=== PATIENT | male | born 1950 | race Caucasian/White ===

== ENCOUNTER 2016-06-27 06:39 | Day surgery (SDC) | payer MEDICARE ==
[~2016-06-27] VITALS: Ht 188 cm; Wt 121.8 kg
[2016-06-27] MEDS ORDERED: SODIUM CHLOR 0.9% 1000 ML INJ 1,000 ML IV SCH (07:15)
[2016-06-27] MEDS ORDERED: SODIUM CHLORIDE 0.9% FLUSH 5 ML FLUSH IV FLUSH PRN (07:15)
[2016-06-27] MEDS ORDERED: LISI10TA3 PO (07:37)
[2016-06-27] MEDS ORDERED: METF500T PO (07:37)
[2016-06-27] MEDS ORDERED: ATOR10TA15 PO (07:37)
[2016-06-27 07:39] VITALS: BP 170/90; PULSE 54; RESP 18; TEMP 98.4; O2SAT 98
[2016-06-27] MEDS ORDERED: HEPARIN-NS/PF INJ 500 ML ONE (08:23)
[2016-06-27] MEDS ORDERED: HEPARIN SODIUM - IV 10,000 UNITS/10 ML VIAL ONE (08:24)
[2016-06-27] MEDS ORDERED: NITROGLYCERIN INJ 5 ML ONE (08:24)
[2016-06-27] MEDS ORDERED: MIDAZOLAM HCL 5 MG/5 ML VIAL ONE ×3 (08:24→09:29)
[2016-06-27] MEDS ORDERED: SODIUM CHLORIDE 0.9% FLUSH 5 ML FLUSH IV FLUSH SCH (09:00)
[2016-06-27] MEDS ORDERED: ADENOSINE IV SOLN 3 MG/ML 2 ML VIAL ONE (09:18)
[2016-06-27] MEDS ORDERED: CLOPIDOGREL 300 MG TAB ONE (09:55)
[2016-06-27] MEDS ORDERED: ASPI81TA11 PO (10:07)
[2016-06-27] MEDS ORDERED: PLAV75TA29 PO (10:07)
[2016-06-27] MEDS ORDERED: LORazepam 2 MG/ML VIAL IV PRN (10:15)
[2016-06-27] MEDS ORDERED: ATROPINE SULFATE 1 MG/ML VIAL IV PRN (10:15)
[2016-06-27] MEDS ORDERED: CLOPIDOGREL 300 MG TAB PO ONE (10:15)
[2016-06-27] MEDS ORDERED: oxyCODONE/ACETAMINOPHEN 5 MG/325 MG TAB PO PRN ×2 (10:15)
[2016-06-27] MEDS ORDERED: ENALAPRILAT 1.25 MG/ML VIAL IV PRN (10:15)
[2016-06-27] MEDS ORDERED: METOCLOPRAMIDE HCL 10 MG/2 ML VIAL IV PRN (10:15)
[2016-06-27] MEDS ORDERED: LABETALOL HCL 100 MG/20 ML VIAL IVP PRN (10:15)
[2016-06-27] MEDS ORDERED: cloNIDine HCL 0.1 MG TAB PO PRN (10:15)
[2016-06-27] MEDS ORDERED: NITROPRUSSIDE INJ 50 MG in DEXTROSE 5% IN WATER INJ 248 ML IV SCH ×2 (10:15)
[2016-06-27] MEDS ORDERED: POTASSIUM CHLORIDE 20 MEQ CONTROLLED RELEASE TAB PO PRN (10:15)
[2016-06-27] MEDS ORDERED: MORPHINE SULFATE 4 MG/ML INJ IV PUSH PRN (10:15)
[2016-06-27] MEDS ORDERED: ONDANSETRON HCL 4 MG/2 ML VIAL IV PRN (10:15)
[2016-06-27] MEDS ORDERED: LIDOCAINE HCL 1% 50 ML VIAL INFIL PRN (10:15)
[2016-06-27] MEDS ORDERED: MISC INFORMATION XX PRN (10:15)
[2016-06-27] MEDS ORDERED: BACITRACIN OINT 0.9 GM PKT TOP ONE (10:15)
[2016-06-27] MEDS ORDERED: SODIUM CHLOR 0.9% 250 ML INJ 250 ML IV PRN (10:15)
--- NOTE | 2016-06-27 12:39 | MA ---
cc: SANJU CHATTERJEE MD DATE: Peripheral angiography intervention. PROCEDURE PERFORMED 1. Fluoroscopy interpretation 2. Descending aortography 3. Bilateral lower extremity peripheral angiography with first, second, third order visualization interpretation. 4. Orbital rotational atherectomy and balloon angioplasty with drug coated balloon of left popliteal artery. 5. Orbital rotational atherectomy and balloon angioplasty left anterior tibial artery. METHOD: The risks, benefits and alternatives was discussed with the patient. The patient understood and consent to the procedure. The patient was then brought into catheterization lab, placed on the catheterization table. Right groin prepped and draped in sterile fashion. Right groin was anesthetized 2% lidocaine per right common femoral is cannulated 5-Swedish 11 cm sheath was placed without difficulty. Descending aortography, the descending aortography was performed anterior-posterior using 24 cc contrast injection with good opacification. The [facility] aortography revealed mild infrarenal descending aortic atherosclerosis. Bilateral renal arteries appear to be Patent. Peripheral angiography 1. Left internal and external common iliac arteries have minor irregularities. Left common femoral has moderate calcium present. A mild luminal irregularities. Left profunda artery has diffuse disease left superficial femoral artery is occluded. There is a left fem pop bypass graft which is widely patent. The midsegment a left popliteal artery has 80% stenosis with heavy calcium present. There is two-vessel runoff below the knee in the left lower extremity. The posterior tibial artery is occluded but have recanalized as distally via collaterals. There is a 75% stenosis in the proximal mid segment. The anterior tibial artery and moderate diffuse disease in the peroneal. 2. The right internal, external common iliac arteries have minor luminal irregularities. Right superficial femoral artery is occluded. The left profunda artery has moderate diffuse disease. The left popliteal is occluded, the left anterior tibial, posterior tibial, peroneal vessels are all occluded. There is a Fem tibial bypass graft which appears to be patent throughout its entire body, throughout the entire course and main body. The distal anastomosis is at the level of the ankle to the posterior tibial artery. There does appear to be about a 75% stenosis of the anastomosis distally. Percutaneous intervention 6-Swedish 45 cm Hemo destination pinnacle sheath was advanced up-and-over the arch into the left common femoral artery. A 0.035 inch 260 cm vantage wire was navigated through the occlusion into the anterior tibial artery 0.014, [address] wire was navigated down to the distal anterior tibial artery 0.014 inches 135 cm trailblazer catheter advanced behind it. The wire was removed. A 0.014-135 cm viper wire was navigated through and into the distal anterior tibial artery and trailblazer catheter removed 1.5 mm CSI atherectomy catheter was then prepped and advanced over the wire. Orbital rotation arthrectomy was preformed on four sequential passes through the popliteal artery and two sequential passes through the proximal to mid anterior tibial artery. the 4.0 x 120 mm Medtronic balloon was then deployed on two sequential inflations in the anterior tibial artery, to 6 atmospheres at 5.0 x 60 mm Medtronic balloon was deployed in the mid popliteal artery. A 86.0 x 80 mm drug coated balloon was then deployed in the left popliteal artery for prolonged inflation. Repeat angiography showed no significant residual stenosis, ASHISH III flow. Good runoff to the anterior tibial peritoneal arteries with collateralization of the posterior tibial. The wire was then removed. Sheath removed exchanged for a 6-Swedish short sheath sewn into place to be removed manual hemostasis and heparin was administered throughout the entire procedure maintain appropriate anticoagulation. CONCLUSION 1. Chronically occluded bilateral superficial femoral arteries. 2. Mild infrarenal descending aortic atherosclerosis. 3. Patent left femoral-popliteal bypass. 4. Severe left-sided popliteal and anterior tibial artery stenosis. 5. Patent femoral tibial bypass with distal moderate stenosis of the level of the posterior tibial distally. 6. Successful rotational atherectomy and balloon angioplasty drug coated balloon. The left popliteal artery. 7. Successful rotational atherectomy and balloon angioplasty left anterior tibial artery. PLAN Hope is he has translate well symptomatic improvement in the left leg will likely manage the right leg conservatively since the graft is open and the vessel distally smaller caliber size. The risks to get all the way down for the balloon angioplasty. That vessel would be difficult and is not symptomatic in that leg. MD BEKAH Sheppard/lidia /10:13 AM /12:17 PM
[2016-06-29] MEDS ORDERED: ASPIRIN EC 81 MG TABEC PO SCH (09:00)
[2016-06-29] MEDS ORDERED: CLOPIDOGREL 75 MG TAB PO SCH (09:00)
== END 2016-06-27 19:56 | disposition home or self-care (01) ==
LOC: HDIC 06:39 → HDOC 06:39
PROVIDERS: ATTEND Internal Medicine
DX: I73.9 Peripheral vascular disease, unspecified (principal); I77.9 Disorder of arteries and arterioles, unspecified; I70.0 Atherosclerosis of aorta; I77.1 Stricture of artery; I10 Essential (primary) hypertension; E78.5 Hyperlipidemia, unspecified; I20.0 Unstable angina; E11.59 Type 2 diabetes mellitus with other circulatory complications; Z87.891 Personal history of nicotine dependence
CPT/HCPCS: 37225; 37229; 75625; 75716; 85002; 86850; 86900; 86901; C1714; C1725; C1751; C1769; C1893; C2623; J0153; J1644; J2250; J3010; J7030